=== PATIENT | female | born 1930 | race Caucasian/White ===

== ENCOUNTER 2016-08-10 13:25 | Inpatient (IN) ==
--- NOTE | 2016-08-10 13:30 | Emergency Department Note ---
Disposition Clinical Impression: Fall Femur fracture, left Qualifiers: Encounter type: initial encounter Femur location: intertrochanteric Fracture type: closed Fracture alignment: displaced Qualified Code(s): S72.142A - Displaced intertrochanteric fracture of left femur, initial encounter for closed fracture Disposition: Admitted As Inpatient Time of Disposition: 15:12 Lower Extremity Injury HPI - General Chief Complaint: ED Extremity Injury, Lower Stated Complaint: L hip pain Time Seen by Provider: 08/10/16 13:28 Source: patient, EMS Mode of arrival: EMS Limitations: no limitations Nursing Notes Reviewed: Yes Vital Signs Reviewed: Yes - History of Present Illness HPI Narrative: Patient is an 85-year-old female with past medical history of hypertension, hypokalemia. She presents today due to mechanical fall. Patient states that she was walking outside and made a turn, lost balance and fell onto her left hip. She complains of significant pain in her left joint. She denies hitting her head, any head or neck pain, denies chest pain, shortness breath, nausea, vomiting, fevers, diarrhea, abdominal pain. Denies any dizziness or lightheadedness before the fall, denies any palpitations before the fall. She states that she falls often because of difficulty with balance. - Related Data Home Medications Medication Instructions Recorded Confirmed Acetaminophen [Tylenol] 500 mg PO Q6H PRN 08/10/16 08/10/16 Calcium Carbonate [Calcium] 600 mg PO BID 08/10/16 08/10/16 Metoprolol Succinate 100 mg PO DAILY 08/10/16 08/10/16 Multivit-Min/FA/Lycopen/Lutein 1 each PO DAILY 08/10/16 08/10/16 [Centrum Silver Tablet] [place]-3/Dha/Epa/Fish Oil [Fish Oil 1,000 mg PO DAILY 08/10/16 08/10/16 1,000 mg Softgel] Oxybutynin [Ditropan] 5 mg PO DAILY 08/10/16 08/10/16 Potassium Chloride [K-Tab ER] 20 meq PO DAILY 08/10/16 08/10/16 Triamterene/HCTZ 37.5/25mg 1 each PO DAILY 08/10/16 08/10/16 [Dyazide] Allergies Allergy/AdvReac Type Severity Reaction Status Date / Time No Known Allergies Allergy Verified 09/28/15 16:34 All systems ED: reviewed and negative except as stated. Constitutional: Denies: fever Cardiovascular: Denies: chest pain, palpitations Respiratory: Denies: cough, dyspnea Gastrointestinal: Denies: abdominal pain, nausea, vomiting, diarrhea, constipation Musculoskeletal: Reports: arthralgia. Denies: back pain, neck pain Integumentary: Denies: rash, lesions Neurological: Denies: weakness, numbness, paresthesias Past Medical History - Past Medical History Attestation: Yes The following information was validated with the patient. Source: patient Medical history: Reports: hypertension Psychiatric history: Reports: no psych history - Social History Smoking Status: Never smoker Smokeless Tobacco Status: No Alcohol use: Reports: none Drug use: Reports: none Physical Exam - General Limitations: no limitations General appearance: alert, in no apparent distress - Head Head exam: atraumatic, normocephalic, normal inspection - Eye Eye exam: Present: normal appearance, PERRL, EOMI - ENT ENT exam: normal exam, mucous membranes moist - Neck Neck exam: Present: normal inspection, full ROM, trachea midline. Absent: tenderness - Respiratory Respiratory exam: Present: normal lung sounds bilaterally - Cardiovascular Cardiovascular exam: Present: regular rate, normal rhythm, normal heart sounds - Abdominal Exam Abdominal exam: Present: soft, Non-Tender. Absent: tenderness, distention, guarding, rebound, rigidity - Extremities Exam Extremities exam: Present: other (Pain with ASIS compression of the left hip. Left lower extremity is shortened and internally rotated compared to the right. No other injuries noted to any other extremities.) - Neurological Exam Neurological exam: Present: alert, oriented X3. Absent: motor sensory deficit - Psychiatric Psychiatric exam: Present: normal affect, normal mood - Skin Skin exam: Present: warm, dry, intact, normal color, other (no cuts or lesions) Course Course Narrative: Physical exam shows Pain with ASIS compression of the left hip. Left lower extremity is shortened and internally rotated compared to the right. No other injuries noted to any other extremities. Concern for left hip or femur fracture. We will obtain AP pelvis x-ray and left femur x-ray. We will give the patient morphine for pain control. 14:44 x-ray show a left intertrochanteric femur fracture. Dr. Margaret gray. He recommended admission to the hospitalist and then will likely perform surgery tomorrow. Dr. Judd meléndez. Femur X-Ray 08/10/16 13:41 IMPRESSION: Intratrochanteric femur fracture better demonstrated on the pelvic examination performed today D/ / Damir Garza MD / Damir Garza MD Interpreting Provider: Damir Garza MD Pelvis X-Ray 08/10/16 13:41 IMPRESSION: Comminuted intertrochanteric fracture of the left femur with over riding of fracture fragments. D/ / Angel Carolina MD / Angel Carolina MD Interpreting Provider: Angel Carolina MD Vital Signs Temperature 98.0 F 08/10/16 13:34 Pulse Rate 70 08/10/16 13:34 Respiratory Rate 16 08/10/16 13:34 Blood Pressure 160/76 08/10/16 13:34 O2 Sat by Pulse Oximetry 97 08/10/16 13:34 Temperature 98.0 F 08/10/16 13:34 Pulse Rate 71 08/10/16 16:36 Respiratory Rate 16 08/10/16 16:36 Blood Pressure 106/44 08/10/16 16:36 O2 Sat by Pulse Oximetry 96 08/10/16 16:36 Oxygen Delivery Oxygen Delivery Room Air Extremity Injury, Lower - Lab Data Result diagrams: 08/10/16 14:40 08/10/16 14:40 Lab Results 08/10/16 08/10/16 08/10/16 Range/Units 14:40 14:40 14:40 WBC 7.2 (4.3-11.1) K/mcL RBC 3.46 L (3.82-4.97) M/mcL Hgb 11.7 (11.5-15.4) g/dL Hct 33.8 L (35.3-44.9) % MCV 97.7 (83.0-100.0) fL MCH 33.8 H (28.0-33.3) pg MCHC 34.6 (31.6-35.5) g/dL RDW 12.7 (11.5-14.5) % Plt Count 164 (140-400) K/mcL MPV 10.6 (9.4-12.4) fL Immature Gran % 0.3 (0-4) % Seg Neutrophils % 66.7 % Lymphocytes % 22.0 % Monocytes % 9.7 % Eosinophils % 1.0 % Basophils % 0.3 % Neutrophils # 4.8 (1.6-8.9) K/mcL Lymphocytes # 1.6 (0.6-4.6) K/mcL Monocytes # 0.7 (0.0-1.3) K/mcL Eosinophils # 0.1 (0.0-0.6) K/mcL Basophils # 0.0 (0.0-0.2) K/mcL PT 12.7 H (9.4-12.1) Seconds INR 1.2 Sodium 140 (136-145) mEq/L Potassium 3.7 (3.5-4.5) mEq/L Chloride 103 (98-109) mEq/L Carbon Dioxide 27 (19-29) mEq/L BUN 20 (7-20) mg/dL Creatinine 1.10 (0.57-1.11) mg/dL Est GFR ( Amer) 57 L (> 60) Est GFR (Non-Af Amer) 47 L (> 60) BUN/Creatinine Ratio 18 (6-26) Glucose 112 H (70-99) mg/dL Calculated Osmolality 293 (280-300) Calcium 9.8 (8.6-10.8) mg/dL Blood Type Antibody Screen 08/10/16 Range/Units 14:40 WBC (4.3-11.1) K/mcL RBC (3.82-4.97) M/mcL Hgb (11.5-15.4) g/dL Hct (35.3-44.9) % MCV (83.0-100.0) fL MCH (28.0-33.3) pg MCHC (31.6-35.5) g/dL RDW (11.5-14.5) % Plt Count (140-400) K/mcL MPV (9.4-12.4) fL Immature Gran % (0-4) % Seg Neutrophils % % Lymphocytes % % Monocytes % % Eosinophils % % Basophils % % Neutrophils # (1.6-8.9) K/mcL Lymphocytes # (0.6-4.6) K/mcL Monocytes # (0.0-1.3) K/mcL Eosinophils # (0.0-0.6) K/mcL Basophils # (0.0-0.2) K/mcL PT (9.4-12.1) Seconds INR Sodium (136-145) mEq/L Potassium (3.5-4.5) mEq/L Chloride (98-109) mEq/L Carbon Dioxide (19-29) mEq/L BUN (7-20) mg/dL Creatinine (0.57-1.11) mg/dL Est GFR ( Amer) (> 60) Est GFR (Non-Af Amer) (> 60) BUN/Creatinine Ratio (6-26) Glucose (70-99) mg/dL Calculated Osmolality (280-300) Calcium (8.6-10.8) mg/dL Blood Type A POSITIVE Antibody Screen NEGATIVE S.B.A.Alfredo - Ciara Situation: Demographics, MOA Background: Presenting Complaint, Relevant PMH, Meds, & Allergies Assessment: Vital Signs, Course and respsone to treatment, Exam Concerns, Patient/Family Expectation, Pertinant Lab Results, Outstanding Labs Recommendation: Barrier(s) to disposition, Recommendation based on pending studies, treatments, or consults S.B.A.RJacey Report Given to: Dr. Judd Urbina Repor Time: 15:12 Attestation Statement - Attestation Attestation: I, William Dunbar, examined this patient and my medical decision-making was reviewed with the PHARMACIST HELPER/PA/Advanced Practice Nurse/Resident Physician. I agree with the documented findings, disposition and treatment plan as described except to the extent set forth below. 85-year-old female presents to the emergency department for evaluation of left hip pain after mechanical fall. Patient states she was turning, lost her balance and fell to the ground striking her left hip. Patient denies hitting her head or having loss of consciousness. Patient's left lower extremity is internally rotated and shortened. She has significant pain with range of motion of the left hip. X-ray of the left hip shows comminuted fracture. Patient's pain is controlled with IV pain medication emergency department. She feels comfortable to be admitted to the hospital for further care and evaluation
[2016-08-10] MEDS ORDERED: *HR* Morphine 2 MG/ML SYRINGE IVP ONE ×2 (13:42→16:58)
[2016-08-10 14:50] LABS: Basophils % 0.3 %; Eosinophils # 0.1 K/mcL (0.0-0.6); Hematocrit 33.8 % (35.3-44.9); Hemoglobin 11.7 g/dL (11.5-15.4); Immature Granulocytes % 0.3 % (0-4); Lymphocytes # 1.6 K/mcL (0.6-4.6); Mean Corpuscular HGB Conc 34.6 g/dL (31.6-35.5); Mean Corpuscular Hemoglobin 33.8 pg (28.0-33.3); Mean Corpuscular Volume 97.7 fL (83.0-100.0); Mean Platelet Volume 10.6 fL (9.4-12.4); Monocytes # 0.7 K/mcL (0.0-1.3); Monocytes % 9.7 %; Neutrophils # 4.8 K/mcL (1.6-8.9); Platelet Count 164 K/mcL (140-400); Red Blood Count 3.46 M/mcL (3.82-4.97); Red Cell Distribution Width 12.7 % (11.5-14.5); Segmented Neutrophils % 66.7 %
[2016-08-10 14:59] LABS: Calcium 9.8 mg/dL (8.6-10.8); Potassium 3.7 mEq/L (3.5-4.5)
[2016-08-10 15:02] LABS: INR 1.2; Prothrombin Time 12.7 Seconds (9.4-12.1)
[2016-08-10] MEDS ORDERED: *HR* Morphine 2 MG/ML SYRINGE IVP PRN (16:59)
[2016-08-10] MEDS ORDERED: Ondansetron 4 MG/2 ML VIAL IVP PRN (17:00)
--- NOTE | 2016-08-10 17:05 | Internal Med History&Physical ---
Date of Encounter: 08/10/16 Time of Encounter: 17:03 Assessment and Plan (1) Hypertension Current visit: Yes Status: Acute Continue metoprolol hundred milligrams daily. Optimal pain control. Qualifiers: Qualified Code(s): I10 - Essential (primary) hypertension (2) CKD (chronic kidney disease) stage 3, GFR 30-59 ml/min Current visit: Yes Status: Acute Stable. Due to long-standing hypertension. (3) Preoperative clearance Current visit: Yes Status: Acute Patient has fair functional capacity can walk approximately 2 blocks. Denies any limiting chest pain. No prior history of coronary artery disease. Clinical predictors include hypertension, chronic kidney disease. Electrocardiogram shows no ST segment shifts. Patient should be able to tolerate surgery with no need for further perioperative cardiac testing. (4) Femur fracture, left Current visit: Yes Status: Acute Orthopedic consultation. NPO after midnight for surgery. Qualifiers: Encounter type: initial encounter Femur location: intertrochanteric Fracture type: closed Fracture alignment: displaced Qualified Code(s): S72.142A - Displaced intertrochanteric fracture of left femur, initial encounter for closed fracture Internal Medicine - H&P: HPI Chief complaint: fall History of present illness: Ms. Reagan is a 85 year old female with past medical history of hypertension, chronic kidney disease stage III, presents the emergency room today after a fall. Patient was in her driveway getting ready to sit on her front porch and as she was turning around lost her balance and fell down. She fell on the left side of her body. He started experiencing pain in the left hip Parisian unable to bear weight for ambulate. Imaging in the emergency room shows left femur fracture. Patient mentioned that she has been somewhat unsteady recently she has a Cane and a walker which she occasionally uses for ambulation. She denies any syncope, presyncope, seizure, focal upper or lower extremity weakness tingling or numbness in any extremity facial symmetry or speech sluriness as a cause for the fall. No recent febrile illness. Patient denies any chest pain with exertion. Can walk approximately 1 to 2 blocks. She lives with her son and her brother lives across the street from her. Past Med Surg Social Fam HX - Past Medical History Medical history: hypertension Psychiatric history: no psych history - Social History Smoking Status: Never smoker Smokeless Tobacco Status: No Alcohol use: none Drug use: none Internal Medicine - H&P: Meds Acetaminophen [Tylenol] 500 mg PO Q6H PRN 08/10/16 [History] Calcium Carbonate [Calcium] 600 mg PO BID 08/10/16 [History] Metoprolol Succinate 100 mg PO DAILY 08/10/16 [History] Multivit-Min/FA/Lycopen/Lutein [Centrum Silver Tablet] 1 each PO DAILY 08/10/16 [History] [place]-3/Dha/Epa/Fish Oil [Fish Oil 1,000 mg Softgel] 1,000 mg PO DAILY 08/10/16 [History] Oxybutynin [Ditropan] 5 mg PO DAILY 08/10/16 [History] Potassium Chloride [K-Tab ER] 20 meq PO DAILY 08/10/16 [History] Triamterene/HCTZ 37.5/25mg [Dyazide] 1 each PO DAILY 08/10/16 [History] Allergies No Known Allergies Allergy (Verified 09/28/15 16:34) All Systems PM: A 10-system review of systems was performed and is negative for pertinent findings except as documented above in the HPI. Review of systems: 10 point review of systems is negative except for HPI. - Constitutional Vitals: Temp Pulse Resp BP Pulse Ox 98.0 F 71 16 106/44 96 08/10/16 13:34 08/10/16 16:36 08/10/16 16:36 08/10/16 16:36 08/10/16 16:36 Exam: Gen.: patient is alert oriented times 3 not in distress. Cardiac: normal S1 S2 no additional sounds chest: Diminished air entry in the right base abdomen: soft nontender nondistended lower extremity: left leg shortened and externally rotated Neuro: No focal deficits. Internal Med - H&P Results - Labs CBC & Chem 7: 08/10/16 14:40 08/10/16 14:40
--- NOTE | 2016-08-10 19:50 | Anesthesia Evaluation PreOp ---
Date of Encounter: 08/10/16 Time of Encounter: 19:47 - Past History Planned Operation: L Hip IM Nail Cardiac History: HTN Pulmonary History: Denies Any Significant HX NETWORKER History: Denies Any Significant HX Other Medical History: Renal (ckd) Anesthesia History: No Prior Anesthetic Complications, Past Anesthesia Alcohol Use: none Drug use: none Medications and Allergies Acetaminophen [Tylenol] 500 mg PO Q6H PRN 08/10/16 [History] Calcium Carbonate [Calcium] 600 mg PO BID 08/10/16 [History] Metoprolol Succinate 100 mg PO DAILY 08/10/16 [History] Multivit-Min/FA/Lycopen/Lutein [Centrum Silver Tablet] 1 each PO DAILY 08/10/16 [History] [place]-3/Dha/Epa/Fish Oil [Fish Oil 1,000 mg Softgel] 1,000 mg PO DAILY 08/10/16 [History] Oxybutynin [Ditropan] 5 mg PO DAILY 08/10/16 [History] Potassium Chloride [K-Tab ER] 20 meq PO DAILY 08/10/16 [History] Triamterene/HCTZ 37.5/25mg [Dyazide] 1 each PO DAILY 08/10/16 [History] Allergies No Known Allergies Allergy (Verified 09/28/15 16:34) - Meds/Allergy Pre-op Review Medications Reviewed: Yes Allergies Reviewed: Yes Beta Blockers on Current Med List: Yes If Beta Blockers taken, Date/Time (Last Dose taken): metoprolol Anesthesia Results - Labs 08/10/16 14:40 08/10/16 14:40 - Imaging EKG: report reviewed (sr/mod lvh) Anesthesia Exam Vital Signs/O2 Sat/Glucose, Most Current Pulse Resp BP Pulse Ox 08/10/16 16:36 71 16 106/44 96 08/10/16 16:34 16 106/44 Height: 1.65 Weight: 61 NPO (# of Hours): >8 - HEENT Pupil (Motor): Pupils equal, EOMI Mallampati: II Teeth: Poor dentition Denture Type: Upper: Partial Oral Opening: Greater than 3 - NETWORKER LOC: Oriented NETWORKER Motor: Normal RUE, Normal LUE, Normal RLE, Normal LLE, Normal Face NETWORKER Sensory: Normal: RUE, LUE, RLE, LLE, Face - Cardiac Rhythm: Regular Murmur: None - Pulmonary Breath Sounds: bilateral Clear Respiratory Effort: Symmetrical Anesthesia Assess/Plan ASA Score: 3 Modified [place] Scale for Level of Consciousness: Cooperative, oriented, and tranquil Anesthetic Plan: General Monitoring Plan: Standard Monitors Recovery Plan: PACU
[2016-08-11] MEDS: Acetaminophen 325 MG TABLET PO PRN ×2 (01:07→08:33)
[2016-08-11 05:27] LABS: Basophils % 0.1 %; Eosinophils % 0.2 %; Hematocrit 28.9 % (35.3-44.9); Immature Granulocytes % 0.3 % (0-4); Lymphocytes # 1.7 K/mcL (0.6-4.6); Lymphocytes % 16.1 %; Mean Corpuscular HGB Conc 33.9 g/dL (31.6-35.5); Mean Corpuscular Hemoglobin 33.2 pg (28.0-33.3); Mean Platelet Volume 11.4 fL (9.4-12.4); Monocytes # 1.4 K/mcL (0.0-1.3); Monocytes % 13.1 %; Neutrophils # 7.2 K/mcL (1.6-8.9); Platelet Count 128 K/mcL (140-400); Red Blood Count 2.95 M/mcL (3.82-4.97); Red Cell Distribution Width 12.8 % (11.5-14.5); Segmented Neutrophils % 70.2 %
[2016-08-11 05:29] LABS: BUN/Creatinine Ratio 23 (6-26); Blood Urea Nitrogen 24 mg/dL (7-20); Calcium 9.3 mg/dL (8.6-10.8); Carbon Dioxide 27 mEq/L (19-29); Chloride 102 mEq/L (98-109); Glucose 131 mg/dL (70-99); Magnesium 1.7 mg/dL (1.6-2.6); Osmolality,Calculated 292 (280-300); Potassium 3.7 mEq/L (3.5-4.5); Sodium 138 mEq/L (136-145); eGFR For African Americans > 60 (> 60); eGFR For Non-African Americans 51 (> 60)
[2016-08-11 05:36] LABS: Hemoglobin 9.8 g/dL (11.5-15.4)
--- NOTE | 2016-08-11 07:28 | Orthopedic Consult Note ---
Date of Encounter: 08/11/16 Time of Encounter: 07:26 Assessment and Plan (1) Femur fracture, left Current Visit: Yes Status: Acute I did discuss the diagnosis in great detail with the patient. She has a left displaced intertrochanteric hip fracture. I did discuss treatment options with the patient and my recommendation was for reduction and internal fixation of the left hip in order to provide pain control and help facilitate nursing care. The risks discussed included but were not limited to stiffness, bleeding, infection, blood clots, damage to neurovascular structures, tendons, ligaments, and bone. Also discussed was the risk of continued symptoms and possible need for further procedures. I did discuss the anesthesia risks including stroke, heart attack, and . I also discussed the risk of malunion, nonunion, and hardware failure. I also discussed the risk of fracture about the distal portion of the prosthesis. I also discussed the reasonable, foreseeable postoperative course with the patient and I do anticipate discharge to a rehabilitation facility postop. I did explain this to the patient in simple terms and she did wish to proceed and consent was obtained. Qualifiers: Encounter type: initial encounter Femur location: intertrochanteric Fracture type: closed Fracture alignment: displaced Qualified Code(s): S72.142A - Displaced intertrochanteric fracture of left femur, initial encounter for closed fracture History of Present Illness HPI: Ms. Reagan is a 85 year old female who is an unassisted community ambulator. She lives independently. She sustained a fall on her front porch yesterday and was admitted to the hospitalist after being found to have a left displaced intertrochanteric hip fracture. The patient complains of isolated sharp pain about the left hip. This does radiate down the thigh. She denies any numbness , tingling, or any other associated signs or symptoms. Movement makes the pain worse and rest makes the pain better. While laying still she was able to get sleep last night. She has no new complaints this morning. She denies any headaches, neck pain, chest pain, abdominal pain, bilateral upper extremity, and right lower extremity pain. She denies any loss of consciousness. Past Med Surg Social Fam HX - Past Medical History Medical history: hypertension Psychiatric history: no psych history - Past Surgical History Surgical History: appendectomy - Social History Smoking Status: Never smoker Smokeless Tobacco Status: No Alcohol use: none Drug use: none Medications and Allergies Acetaminophen [Tylenol] 500 mg PO Q6H PRN 08/10/16 [History] Calcium Carbonate [Calcium] 600 mg PO BID 08/10/16 [History] Metoprolol Succinate 100 mg PO DAILY 08/10/16 [History] Multivit-Min/FA/Lycopen/Lutein [Centrum Silver Tablet] 1 each PO DAILY 08/10/16 [History] [place]-3/Dha/Epa/Fish Oil [Fish Oil 1,000 mg Softgel] 1,000 mg PO DAILY 08/10/16 [History] Oxybutynin [Ditropan] 5 mg PO DAILY 08/10/16 [History] Potassium Chloride [K-Tab ER] 20 meq PO DAILY 08/10/16 [History] Triamterene/HCTZ 37.5/25mg [Dyazide] 1 each PO DAILY 08/10/16 [History] Allergies No Known Allergies Allergy (Verified 09/28/15 16:34) All Systems Reviewed: Constitutional and musculoskeletal systems were reviewed and are negative unless otherwise stated in history of present illness. Physical Exam - Constitutional Vitals: Temp Pulse Resp BP Pulse Ox 98.5 F 73 16 125/73 96 08/11/16 07:24 08/11/16 07:24 08/11/16 07:24 08/11/16 07:24 08/11/16 07:24 Constitutional -Vitals reviewed -The patient is well developed and well nourished. -Mood is pleasant. -The patient is well groomed. Psychiatric -The patient is fully alert and oriented x 3. Respiratory: -Respiratory effort normal Abdomen: -Soft abdomen -Non tender -Non distended: Left upper extremity: -No deformities. The overlying skin is intact. No obvious signs of acute trauma. -No tenderness to palpation throughout. -No significant pain with passive motion of the shoulder, elbow, wrist, and fingers within the limits of the bed. -Able to make an "OK" sign, cross the index and long fingers, and extend the thumb. -Sensation grossly intact to light touch throughout the median, radial, and ulnar distributions. -Radial pulse is present; Fingers have good capillary refill. Right upper extremity: -No deformities. The overlying skin is intact. No obvious signs of acute trauma. -No tenderness to palpation throughout. -No significant pain with passive motion of the shoulder, elbow, wrist, and fingers within the limits of the bed. -Able to make an "OK" sign, cross the index and long fingers, and extend the thumb. -Sensation grossly intact to light touch throughout the median, radial, and ulnar distributions. -Radial pulse is present; Fingers have good capillary refill. Left lower extremity: -The extremity is shortened and externally rotated. The overlying skin is intact. -There is tenderness in the groin region as well as the proximal lateral thigh. -I did not range the hip due to the known fracture. -No tenderness along the distal thigh, leg, ankle, foot, or toes. -Able to dorsiflex and plantarflex the ankle and toes. -Sensation is grossly intact to light touch throughout the sural, saphenous, superficial peroneal, and deep peroneal distributions. -Toes have good capillary refill. Right lower extremity: -No deformities. The overlying skin is intact. No obvious signs of acute trauma. -No tenderness to palpation throughout. -No pain with passive motion of the hip, knee, ankle, and toes within the limits of the bed. -No pain with axial loading of the thigh. -Able to dorsiflex and plantarflex the ankle and toes. -Sensation is grossly intact to light touch throughout the sural, saphenous, superficial peroneal, and deep peroneal distributions. -Toes have good capillary refill. Diagnostic Imaging: I did personally review and interpret x-rays of the left hip and femur which show a displaced intertrochanteric hip fracture. Results - Labs Result Diagrams: 08/11/16 03:20 08/11/16 03:20 Labs: Abnormal lab results RBC 2.95 M/mcL (3.82-4.97) L 08/11/16 03:20 Hgb 9.8 g/dL (11.5-15.4) L D 08/11/16 03:20 Hct 28.9 % (35.3-44.9) L 08/11/16 03:20 Plt Count 128 K/mcL (140-400) L 08/11/16 03:20 Monocytes # 1.4 K/mcL (0.0-1.3) H 08/11/16 03:20 PT 12.7 Seconds (9.4-12.1) H 08/10/16 14:40 BUN 24 mg/dL (7-20) H 08/11/16 03:20 Est GFR (Non-Af Amer) 51 (> 60) L 08/11/16 03:20 Glucose 131 mg/dL (70-99) H 08/11/16 03:20 H & H 08/11/16 Range/Units 03:20 Hgb 9.8 L D (11.5-15.4) g/dL Hct 28.9 L (35.3-44.9) % All other labs normal. Consult Discharge Plan - Plan Referrals: Sha Beyer DO [Primary Care Provider] -
[2016-08-11] MEDS ORDERED: D5% in 0.9% NACL 1,000 ML IVC SCH (08:00)
[2016-08-11] MEDS: Omega-3/Dha/Epa/Fish Oil [Fish Oil 1,000 Mg Softgel] PO SCH (08:26)
[2016-08-11] MEDS: Metoprolol XL (24 HR) Succ 50 MG TAB.ER.24H PO SCH (08:33)
[2016-08-11] MEDS ORDERED: *HR* Morphine 2 MG/ML SYRINGE IVP PRN ×2 (09:25→13:19)
--- NOTE | 2016-08-11 12:00 | Internal Med Progress Note ---
Date of Encounter: 08/11/16 Time of Encounter: 11:57 - Assessment and plan (1) Hypertension Current Visit: Yes Status: Acute Assessment and plan: Fairly well-controlled continue metoprolol hundred milligrams daily. Qualifiers: Qualified Code(s): I10 - Essential (primary) hypertension (2) CKD (chronic kidney disease) stage 3, GFR 30-59 ml/min Current Visit: Yes Status: Acute Assessment and plan: Stable. (3) Femur fracture, left Current Visit: Yes Status: Acute Assessment and plan: Patient going for surgery today. Patient not tolerating morphine while. Will decrease morphine dose to 1 mg Q4 hours for severe pain. Continue Tionesta Q4 hours for moderate pain. I have discussed with the patient the need for skilled care on discharge. I have also discussed with her the need for one month of anticoagulation therapy Qualifiers: Encounter type: initial encounter Femur location: intertrochanteric Fracture type: closed Fracture alignment: displaced Qualified Code(s): S72.142A - Displaced intertrochanteric fracture of left femur, initial encounter for closed fracture - Subjective Interval history: Patient seen and examined. Denies any new complains. paid well-controlled. No chest pain - Constitutional Vitals: Temp Pulse Resp BP Pulse Ox 98.3 F 68 16 127/63 95 08/11/16 10:08 08/11/16 10:08 08/11/16 10:08 08/11/16 10:08 08/11/16 10:08 Exam: Gen.: patient is alert oriented times 3 not in distress. Cardiac: normal S1 S2 no additional sounds or murmurs chest: fair air entry. no active wheezing. No crackles or bronchial breathing. abdomen: soft nontender nondistended normal bowel sounds neuro: no focal deficit Internal Medicine: Result - Labs CBC & Chem 7: 08/11/16 03:20 08/11/16 03:20 - ABG Interpretation ABG results: PT/INR, D-dimer PT 12.7 Seconds (9.4-12.1) H 08/10/16 14:40 Consult Discharge Plan - Plan Referrals: Sha Beyer DO [Primary Care Provider] -
--- NOTE | 2016-08-11 12:35 | Electrocardiograph Report ---
[place] [id number] Test Date: 2016-08-10 Pat Name: Sandy Reagan Department: 104 Room: [facility] Gender: F Planning Aide: [id number] : 1930 Requested By: Daryn Raines Order Number: [id number] Reading MD: Kalie Scherer Measurements Intervals Brothers Rate: 64 P: 17 OK: 148 QRS: -9 QRSD: 100 T: 31 QT: 400 QTc: 410 Interpretive Statements SINUS RHYTHM MINIMAL VOLTAGE CRITERIA FOR LVH, CONSIDER NORMAL VARIANT Electronically Signed On 08-11-2016 12:33:48 EDT by Kalie Scherer
[2016-08-11] MEDS ORDERED: *HR* Rocuronium Bromide 50 MG/5 ML VIAL ONE (12:37)
[2016-08-11] MEDS ORDERED: Lidocaine -MPF 2% 2 ML VIAL ONE (12:37)
[2016-08-11] MEDS ORDERED: *HR* Phenylephrine 10 MG/ML VIAL ONE (12:37)
[2016-08-11] MEDS ORDERED: *HR* Propofol 200 MG/20 ML VIAL IVP ONE (12:38)
[2016-08-11] MEDS ORDERED: *HR* FentaNYL (PF) 100 MCG/2 ML VIAL ONE ×2 (12:38→13:50)
[2016-08-11] MEDS ORDERED: Ondansetron 4 MG/2 ML VIAL IVP ONE (13:19)
[2016-08-11] MEDS ORDERED: *HR* Labetalol 100 MG/20 ML MDV IVP PRN (13:19)
[2016-08-11] MEDS ORDERED: Dexamethasone 4 MG/ML VIAL ONE (13:25)
[2016-08-11] MEDS ORDERED: Neostigmine Methylsulfate 3 MG/3 ML SYRINGE ONE (13:28)
[2016-08-11] MEDS: *HR* HYDROmorphone (PF) 1 MG/ML SYRINGE IVP PRN ×4 (14:20→14:40)
[2016-08-11] MEDS ORDERED: *HR* HYDROmorphone (PF) 1 MG/ML SYRINGE ONE (14:21)
--- NOTE | 2016-08-11 14:54 | Anesthesia Evaluation Post Op ---
Date of Encounter: 08/11/16 Time of Encounter: 14:53 - Vital Signs Vital Signs: Last Vital Signs Temp 97.2 F L 08/11/16 14:33 Pulse 70 08/11/16 14:33 Resp 16 08/11/16 14:33 BP 144/61 08/11/16 14:33 Pulse Ox 97 08/11/16 14:33 - Lungs Lungs: Clear Ascult./Percussion - Airway Airway: Non-obstructed - Cardiovascular Regular Rate - Mental Status Mental Status: Alert & Oriented, Answers Appropriately - Pain Pain Scale: 3 - Nausea Vomiting Nausea Vomiting: Not Present - Hydration Hydration: Ice chips - Discharge PostOp Status: Transfer Patient to floor
[2016-08-11] MEDS: ceFAZolin 2,000 MG in D5% in Water 100 ML IVPB SCH (19:02)
--- NOTE | 2016-08-11 21:12 | Orthopedic Operative Note ---
Date of procedure: 08/11/16 Procedure: OPERATIVE REPORT DATE OF PROCEDURE: 08/11/2016 SURGEON: Carlos Robles MD CHARGE OPERATOR(S): There were no assistants PREOPERATIVE DIAGNOSIS: Left intertrochanteric hip fracture POSTOPERATIVE DIAGNOSIS: Left intertrochanteric hip fracture PROCEDURE: Reduction and medullary nailing of the left hip fracture ANESTHESIA: General anesthesia PREOPERATIVE ANTIBIOTICS: 2 g of Ancef ESTIMATED BLOOD LOSS: 40 milliliters IMPLANTS: Ban Gamma 3 nail measuring 11 mm by 180 mm by 125 degrees with a 95 mm lag screw PREOPERATIVE NOTE AND INDICATIONS: Sandy is an 85-year-old female who sustained a left intertrochanteric hip fracture. Treatment options were discussed and the recommendation was for the above-described procedure in order to stabilize the hip, control pain, and help facilitate nursing care. The surgical plan was discussed with the patient. The risks, benefits, alternatives, and potential complications of this procedure were discussed with the patient including injury to veins, arteries, nerves, tendons, ligaments, and bone. Also discussed were the risks of infection, bleeding, pain, blood clots, the possible need for a blood transfusion, the possible need for further procedures, heart attack, stroke, and . Additional risks discussed included malunion, nonunion, hardware failure, and fracture just distal to the implant. All of this was explained in simple terms, and the patient verbalized understanding and wished to proceed. Consent was given to proceed with surgery. PROCEDURE: The patient was seen in the preoperative holding area where the identify and the consent were confirmed. The left hip was marked. Final questions were answered. The patient was brought back to the operating room. A huddle was performed with the patient and all vital surgical team members confirming patient identity, the correct procedure, and the correct operative site. General anesthesia was administered. The patient was placed supine on the traction table where traction was placed to the left lower extremity, and the right lower extremity was flexed and abducted out of the way. Traction and internal rotation was applied to the operative side. X-rays confirmed good position. The left thigh was prepped and draped in the usual sterile fashion. A surgical time out was performed immediately preceding the incision with all personnel in the operating room to confirm patient identity, the correct operative site and extremity, correct radiographic studies, availability of appropriate surgical equipment, and agreement on the planned procedure. A small incision was made just proximal to the greater trochanter and proceeded through the subcutaneous tissue and gluteal fascia. The guidewire was placed on the greater trochanter and advanced. The opening reamer was applied and the definitive nail was placed in the medullary canal. Using the triple sleeve, the K wire was driven into the femoral head which was subsequently measured, reamed, and the definitive 95 mm lag screw was placed. Using the distal targeter, a single 32.5 mm locking screw was placed in static mode. X-rays confirmed good position of the hardware as well as good reduction. The wounds were copiously irrigated and the deep layer closed with 0 Vicryl followed by the skin with 3-0 Vicryl and cecelia. Sterile dressings were placed. The patient was taken down off the traction table and placed our operative bed having tolerated the procedure well. The instrument, sponge, and needle counts were correct after wound closure. POST OPERATIVE PLAN: Weight Bearing: As tolerated DVT Prophylaxis: Aspirin 325 mg by mouth twice a day Activity: As tolerated with assistance Wound Care: Daily dressing changes on postoperative day 2 Pain Control: Oral and IV narcotic analgesia. Perioperative antibiotic prophylaxis: 2 doses of Ancef Social work for discharge planning Follow Up: 2 weeks after surgery
--- NOTE | 2016-08-11 21:25 | Orthopedics Progress Note ---
Date of Encounter: 08/11/16 Time of Encounter: 21:23 - Assessment and Plan (1) Femur fracture, left Current Visit: Yes Status: Acute Qualifiers: Encounter type: initial encounter Femur location: intertrochanteric Fracture type: closed Fracture alignment: displaced Qualified Code(s): S72.142A - Displaced intertrochanteric fracture of left femur, initial encounter for closed fracture Subjective Interval history: S: Seen on the floor. Hip pain on the left is improved. No new complaints. O: Afeb, VSS Left hip dressing is dry. Able to flex and extend ankles and toes. Foot is sensate and well perfused. A: Post left hip nail P: PT/OT WBAT B/L LE when able Hyatt out tomorrow 2 doses of post op ancef ASA 325 po BID and B/L Thigh high MARCE hose for DVT prophylaxis Dr. Dennis to round over the weekend. Objective Vital signs: Vital Signs Temp Pulse Resp BP Pulse Ox 08/11/16 20:10 98.1 F 69 15 130/53 94 08/11/16 18:15 98.1 F 69 17 119/61 98 08/11/16 17:17 97.5 F L 72 20 144/70 96 08/11/16 16:36 97.6 F 69 16 111/55 100 08/11/16 15:50 98.2 F 65 16 108/48 100 08/11/16 15:15 98.6 F 68 14 125/51 96 08/11/16 14:53 65 16 121/65 100 08/11/16 14:43 68 16 122/65 100 08/11/16 14:33 97.2 F L 70 16 144/61 97 08/11/16 14:23 68 16 137/73 100 08/11/16 14:13 68 16 145/60 100 08/11/16 14:03 97.1 F L 68 16 111/55 100 Intake and Output 08/11/16 08/11/16 08/11/16 07:59 15:59 23:59 Output Total 40 / 190 Balance -40 / -190 Output: Urine 0 / 0 Estimated Blood Loss 40 / 40 - Labs CBC & BMP: 08/11/16 03:20 08/11/16 03:20 Labs: Abnormal lab results RBC 2.95 M/mcL (3.82-4.97) L 08/11/16 03:20 Hgb 9.8 g/dL (11.5-15.4) L D 08/11/16 03:20 Hct 28.9 % (35.3-44.9) L 08/11/16 03:20 Plt Count 128 K/mcL (140-400) L 08/11/16 03:20 Monocytes # 1.4 K/mcL (0.0-1.3) H 08/11/16 03:20 PT 12.7 Seconds (9.4-12.1) H 08/10/16 14:40 BUN 24 mg/dL (7-20) H 08/11/16 03:20 Est GFR (Non-Af Amer) 51 (> 60) L 08/11/16 03:20 Glucose 131 mg/dL (70-99) H 08/11/16 03:20 - VTE Documentation of Mechanical Device: Intermittent pneumatic compression device Consult Discharge Plan - Plan Additional Instructions: LONGTERM DISCHARGE INSTRUCTIONS Dr. Robles PROCEDURE PERFORMED Reduction and fixation of left hip. Incision care -Daily dressing changes to the right hip with dry gauze and either paper tape or medipore tape. -Avoid soaking wound in water (no hot tubs, bathtubs, swimming pools). -May shower after 2 weeks from surgery date. Carefully wash incision with soap and water. Gently pat it dry. Don't rub the incision, or apply creams or lotions. Sit on a shower stool when showering to keep from falling. Weight bearing status -Weightbearing as tolerated to the bilateral lower extremities. Medications -Pain medication per the discharging medical doctor -Enteric coated aspirin 325 mg by mouth twice per day for 28 days from the date of the surgery. Other -Knee high MARCE hose 23 hours per day -Consult physical and occupational therapy for ambulation. -Up to chair with assistance at least twice per day. -Follow up with your primary care physician to discuss testing for bone mineral density. Follow-up with Dr. Robles at the office 2 weeks from the surgery date for a post operative evaluation. Call the office at [phone] to schedule appointment. Referrals: Sha Beyer DO [Primary Care Provider] -
[2016-08-11] MEDS: Aspirin Enteric Coated 325 MG Tablet PO SCH (21:53)
[2016-08-11] MEDS: *HR* HYDROcodone/Acet 5/325 mg TABLET PO PRN (21:53)
[2016-08-12] MEDS: ceFAZolin 2,000 MG in D5% in Water 100 ML IVPB SCH (02:38)
[2016-08-12] MEDS: *HR* HYDROcodone/Acet 5/325 mg TABLET PO PRN ×3 (02:43→23:15)
[2016-08-12 05:03] LABS: Basophils % 0.1 %; Hematocrit 25.2 % (35.3-44.9); Hemoglobin 8.6 g/dL (11.5-15.4); Immature Granulocytes % 0.4 % (0-4); Lymphocytes # 1.1 K/mcL (0.6-4.6); Lymphocytes % 8.3 %; Mean Corpuscular HGB Conc 34.1 g/dL (31.6-35.5); Mean Corpuscular Hemoglobin 33.9 pg (28.0-33.3); Mean Corpuscular Volume 99.2 fL (83.0-100.0); Mean Platelet Volume 11.4 fL (9.4-12.4); Monocytes # 1.4 K/mcL (0.0-1.3); Monocytes % 10.6 %; Neutrophils # 10.5 K/mcL (1.6-8.9); Platelet Count 122 K/mcL (140-400); Red Blood Count 2.54 M/mcL (3.82-4.97); Red Cell Distribution Width 12.8 % (11.5-14.5); Segmented Neutrophils % 80.6 %
[2016-08-12 05:15] LABS: BUN/Creatinine Ratio 20 (6-26); Blood Urea Nitrogen 19 mg/dL (7-20); Calcium 8.1 mg/dL (8.6-10.8); Carbon Dioxide 26 mEq/L (19-29); Chloride 104 mEq/L (98-109); Glucose 150 mg/dL (70-99); Magnesium 1.4 mg/dL (1.6-2.6); Osmolality,Calculated 291 (280-300); Potassium 3.8 mEq/L (3.5-4.5); Sodium 138 mEq/L (136-145); eGFR For African Americans > 60 (> 60); eGFR For Non-African Americans 56 (> 60)
--- NOTE | 2016-08-12 06:54 | Orthopedics Progress Note ---
Date of Encounter: 08/12/16 Time of Encounter: 06:53 Subjective Interval history: Patient was seen this morning doing well without complaints. Afebrile vital signs stable. Operative extremity: Neurovascularly intact Dressing clean dry and intact Calves nontender Assessment and plan: Continue with postoperative care hematocrit 25transfuse 1 unit Objective Vital signs: Vital Signs Temp Pulse Resp BP Pulse Ox 08/12/16 04:33 98.4 F 80 14 136/63 97 08/11/16 23:54 98.1 F 73 14 124/67 100 08/11/16 20:10 98.1 F 69 15 130/53 94 08/11/16 18:15 98.1 F 69 17 119/61 98 08/11/16 17:17 97.5 F L 72 20 144/70 96 08/11/16 16:36 97.6 F 69 16 111/55 100 08/11/16 15:50 98.2 F 65 16 108/48 100 08/11/16 15:15 98.6 F 68 14 125/51 96 08/11/16 14:53 65 16 121/65 100 08/11/16 14:43 68 16 122/65 100 08/11/16 14:33 97.2 F L 70 16 144/61 97 08/11/16 14:23 68 16 137/73 100 08/11/16 14:13 68 16 145/60 100 08/11/16 14:03 97.1 F L 68 16 111/55 100 Intake and Output 08/11/16 08/11/16 08/12/16 15:59 23:59 07:59 Intake Total 250 / 250 300 / 300 Output Total 40 / 190 200 / 200 250 / 250 Balance -40 / -190 50 / 50 50 / 50 Intake: IV Fluids 100 / 100 Ancef 2,000 MG In 100 / 100 Dextrose 5% 100 ML @ 200 mls/hr IVPB Q8H [facility] Rx#: [id number] Oral 150 / 150 300 / 300 Output: Urine 0 / 0 Estimated Blood Loss 40 / 40 Catheter 200 / 200 250 / 250 - Labs CBC & BMP: 08/12/16 04:06 08/12/16 04:06 Labs: Abnormal lab results WBC 13.0 K/mcL (4.3-11.1) H 08/12/16 04:06 RBC 2.54 M/mcL (3.82-4.97) L 08/12/16 04:06 Hgb 8.6 g/dL (11.5-15.4) L 08/12/16 04:06 Hct 25.2 % (35.3-44.9) L 08/12/16 04:06 MCH 33.9 pg (28.0-33.3) H 08/12/16 04:06 Plt Count 122 K/mcL (140-400) L 08/12/16 04:06 Neutrophils # 10.5 K/mcL (1.6-8.9) H 08/12/16 04:06 Monocytes # 1.4 K/mcL (0.0-1.3) H 08/12/16 04:06 PT 12.7 Seconds (9.4-12.1) H 08/10/16 14:40 Est GFR (Non-Af Amer) 56 (> 60) L 08/12/16 04:06 Glucose 150 mg/dL (70-99) H 08/12/16 04:06 Calcium 8.1 mg/dL (8.6-10.8) L 08/12/16 04:06 Magnesium 1.4 mg/dL (1.6-2.6) L 08/12/16 04:06 - VTE Documentation of Mechanical Device: Intermittent pneumatic compression device Consult Discharge Plan - Plan Additional Instructions: PRISON DISCHARGE INSTRUCTIONS Dr. Robles PROCEDURE PERFORMED Reduction and fixation of left hip. Incision care -Daily dressing changes to the right hip with dry gauze and either paper tape or medipore tape. -Avoid soaking wound in water (no hot tubs, bathtubs, swimming pools). -May shower after 2 weeks from surgery date. Carefully wash incision with soap and water. Gently pat it dry. Don't rub the incision, or apply creams or lotions. Sit on a shower stool when showering to keep from falling. Weight bearing status -Weightbearing as tolerated to the bilateral lower extremities. Medications -Pain medication per the discharging medical doctor -Enteric coated aspirin 325 mg by mouth twice per day for 28 days from the date of the surgery. Other -Knee high MARCE hose 23 hours per day -Consult physical and occupational therapy for ambulation. -Up to chair with assistance at least twice per day. -Follow up with your primary care physician to discuss testing for bone mineral density. Follow-up with Dr. Robles at the office 2 weeks from the surgery date for a post operative evaluation. Call the office at [phone] to schedule appointment. Referrals: Sha Beyer DO [Primary Care Provider] -
[2016-08-12] MEDS ORDERED: Furosemide 20 MG/2 ML VIAL IVP ONE ×2 (07:11→14:16)
[2016-08-12] MEDS: Metoprolol XL (24 HR) Succ 50 MG TAB.ER.24H PO SCH (09:05)
[2016-08-12] MEDS: Aspirin Enteric Coated 325 MG Tablet PO SCH ×2 (09:05→21:02)
[2016-08-12] MEDS ORDERED: 0.9 % Sodium Chloride 250 ML ONE (09:37)
[2016-08-12] MEDS: Omega-3/Dha/Epa/Fish Oil [Fish Oil 1,000 Mg Softgel] PO SCH (10:11)
[2016-08-12] MEDS ORDERED: Magnesium Sulfate 2 GM in D5% in Water 100 ML IVPB ONE (16:48)
--- NOTE | 2016-08-12 18:44 | Internal Med Progress Note ---
Date of Encounter: 08/12/16 Time of Encounter: 13:00 - Assessment and plan (1) Hypomagnesemia Current Visit: Yes Status: Acute Assessment and plan: Replete with IV magnesium. (2) Recurrent falls Current Visit: Yes Status: Acute Assessment and plan: PT OT evaluation. Subacute rehabilitation placement. (3) Disequilibrium Current Visit: Yes Status: Acute Assessment and plan: PT OT eval and daily therapy. (4) Femur fracture, left Current Visit: Yes Status: Acute Assessment and plan: Status post ORIF, continue postoperative care. Qualifiers: Encounter type: initial encounter Femur location: intertrochanteric Fracture type: closed Fracture alignment: displaced Qualified Code(s): S72.142A - Displaced intertrochanteric fracture of left femur, initial encounter for closed fracture (5) Hypertension Current Visit: Yes Status: Acute Assessment and plan: Continue with metoprolol. The pressure is well controlled. Qualifiers: Qualified Code(s): I10 - Essential (primary) hypertension (6) Postoperative anemia due to acute blood loss Current Visit: Yes Status: Acute Assessment and plan: Status post 1 unit PRBC transfusion. We will monitor hemoglobin and hematocrit daily. We will transfuse if hemoglobin below 7.0. - Subjective Interval history: Patient reports 0/10 left hip pain. She is postoperative day 1 status post left hip open reduction and internal fixation. She presented to the hospital status post fall which resulted in a left hip fracture. - Constitutional Vitals: Temp Pulse Resp BP Pulse Ox 97.9 F 88 18 123/59 96 08/12/16 14:01 08/12/16 14:01 08/12/16 14:01 08/12/16 14:01 08/12/16 14:01 - Respiratory Respiratory exam: Present: CTAB. Absent: accessory muscle use, rales, rhonchi, wheezes - Cardiovascular Cardiovascular exam: Present: RRR, +S1, +S2. Absent: diastolic murmur, gallop, rubs, systolic murmur - GI/Abdominal GI/Abdominal exam: Present: normal bowel sounds, soft, no peritoneal signs. Absent: distended, tenderness - Extremities Exam Extremities exam: Present: warm, radial pulses palpable and symetrical. Absent : calf tenderness, cyanotic, pedal edema Additional comments: Left hip bruising and soft tissue edema. Surgical dressing clean dry and intact. - Skin Skin exam: Present: dry, intact Internal Medicine: Result - Labs CBC & Chem 7: 08/12/16 04:06 08/12/16 04:06 Labs: Short CBC 08/12/16 Range/Units 04:06 WBC 13.0 H (4.3-11.1) K/mcL Hgb 8.6 L (11.5-15.4) g/dL Hct 25.2 L (35.3-44.9) % Plt Count 122 L (140-400) K/mcL Neutrophils # 10.5 H (1.6-8.9) K/mcL BMP 08/12/16 04:06 Sodium 138 Potassium 3.8 Chloride 104 Carbon Dioxide 26 BUN 19 Creatinine 0.95 Glucose 150 H Calcium 8.1 L - ABG Interpretation ABG results: PT/INR, D-dimer PT 12.7 Seconds (9.4-12.1) H 08/10/16 14:40 - VTE Documentation of Mechanical Device: Intermittent pneumatic compression device Consult Discharge Plan - Plan Additional Instructions: USP DISCHARGE INSTRUCTIONS Dr. Robles PROCEDURE PERFORMED Reduction and fixation of left hip. Incision care -Daily dressing changes to the right hip with dry gauze and either paper tape or medipore tape. -Avoid soaking wound in water (no hot tubs, bathtubs, swimming pools). -May shower after 2 weeks from surgery date. Carefully wash incision with soap and water. Gently pat it dry. Don't rub the incision, or apply creams or lotions. Sit on a shower stool when showering to keep from falling. Weight bearing status -Weightbearing as tolerated to the bilateral lower extremities. Medications -Pain medication per the discharging medical doctor -Enteric coated aspirin 325 mg by mouth twice per day for 28 days from the date of the surgery. Other -Knee high MARCE hose 23 hours per day -Consult physical and occupational therapy for ambulation. -Up to chair with assistance at least twice per day. -Follow up with your primary care physician to discuss testing for bone mineral density. Follow-up with Dr. Robles at the office 2 weeks from the surgery date for a post operative evaluation. Call the office at [phone] to schedule appointment. Referrals: Sha Beyer DO [Primary Care Provider] -
[2016-08-13] MEDS: *HR* HYDROcodone/Acet 5/325 mg TABLET PO PRN ×2 (04:47→08:53)
--- NOTE | 2016-08-13 06:30 | Orthopedics Progress Note ---
Date of Encounter: 08/13/16 Time of Encounter: 06:30 Subjective Interval history: Patient was seen this morning doing well without complaints. Afebrile vital signs stable. Operative extremity: Neurovascularly intact Dressing clean dry and intact Calves nontender Assessment and plan: Continue with postoperative care stable for discharge Objective Vital signs: Vital Signs Temp Pulse Resp BP Pulse Ox 08/12/16 23:50 97.7 F 85 17 115/66 97 08/12/16 20:51 97.5 F L 70 16 111/70 96 08/12/16 14:01 97.9 F 88 18 123/59 96 08/12/16 11:20 97.9 F 75 15 112/55 97 08/12/16 10:19 98.2 F 81 17 111/65 96 08/12/16 10:04 97.8 F 90 16 107/74 08/12/16 08:38 97.9 F 65 18 148/74 98 Intake and Output 08/12/16 08/12/16 08/13/16 15:59 23:59 07:59 Intake Total 1445 / 1445 300 / 300 400 / 400 Output Total 400 / 400 1275 / 1275 680 / 680 Balance 1045 / 1045 -975 / -975 -280 / -280 Intake: IV Fluids 100 / 100 0.9 % Sodium Chloride 250 100 / 100 ML As .R[facility]TE [facility] Rx#:[id number] Oral 720 / 720 300 / 300 400 / 400 Blood Product 625 / 625 Rbcs Leuko Poor As-1 625 / 625 Unit [id number] Output: Urine 400 / 400 1275 / 1275 680 / 680 Other: Meal Lunch Dinner Percent of Meal Consumed 80% 50% - Labs CBC & BMP: 08/12/16 04:06 08/12/16 04:06 Labs: Abnormal lab results WBC 13.0 K/mcL (4.3-11.1) H 08/12/16 04:06 RBC 2.54 M/mcL (3.82-4.97) L 08/12/16 04:06 Hgb 8.6 g/dL (11.5-15.4) L 08/12/16 04:06 Hct 25.2 % (35.3-44.9) L 08/12/16 04:06 MCH 33.9 pg (28.0-33.3) H 08/12/16 04:06 Plt Count 122 K/mcL (140-400) L 08/12/16 04:06 Neutrophils # 10.5 K/mcL (1.6-8.9) H 08/12/16 04:06 Monocytes # 1.4 K/mcL (0.0-1.3) H 08/12/16 04:06 PT 12.7 Seconds (9.4-12.1) H 08/10/16 14:40 Est GFR (Non-Af Amer) 56 (> 60) L 08/12/16 04:06 Glucose 150 mg/dL (70-99) H 08/12/16 04:06 Calcium 8.1 mg/dL (8.6-10.8) L 08/12/16 04:06 Magnesium 1.4 mg/dL (1.6-2.6) L 08/12/16 04:06 - VTE Documentation of Mechanical Device: Intermittent pneumatic compression device Consult Discharge Plan - Plan Additional Instructions: CORRECTION DISCHARGE INSTRUCTIONS Dr. Robles PROCEDURE PERFORMED Reduction and fixation of left hip. Incision care -Daily dressing changes to the right hip with dry gauze and either paper tape or medipore tape. -Avoid soaking wound in water (no hot tubs, bathtubs, swimming pools). -May shower after 2 weeks from surgery date. Carefully wash incision with soap and water. Gently pat it dry. Don't rub the incision, or apply creams or lotions. Sit on a shower stool when showering to keep from falling. Weight bearing status -Weightbearing as tolerated to the bilateral lower extremities. Medications -Pain medication per the discharging medical doctor -Enteric coated aspirin 325 mg by mouth twice per day for 28 days from the date of the surgery. Other -Knee high MARCE hose 23 hours per day -Consult physical and occupational therapy for ambulation. -Up to chair with assistance at least twice per day. -Follow up with your primary care physician to discuss testing for bone mineral density. Follow-up with Dr. Robles at the office 2 weeks from the surgery date for a post operative evaluation. Call the office at [phone] to schedule appointment. Referrals: Sha Beyer DO [Primary Care Provider] -
[2016-08-13 06:48] LABS: Basophils % 0.1 %; Eosinophils % 0.3 %; Hematocrit 25.7 % (35.3-44.9); Hemoglobin 8.9 g/dL (11.5-15.4); Immature Granulocytes % 0.6 % (0-4); Lymphocytes % 8.3 %; Mean Corpuscular HGB Conc 34.6 g/dL (31.6-35.5); Mean Corpuscular Hemoglobin 32.6 pg (28.0-33.3); Mean Corpuscular Volume 94.1 fL (83.0-100.0); Monocytes # 1.8 K/mcL (0.0-1.3); Monocytes % 14.2 %; Neutrophils # 9.5 K/mcL (1.6-8.9); Platelet Count 123 K/mcL (140-400); Red Blood Count 2.73 M/mcL (3.82-4.97); Red Cell Distribution Width 14.6 % (11.5-14.5); Segmented Neutrophils % 76.5 %
[2016-08-13 07:00] LABS: BUN/Creatinine Ratio 25 (6-26); Blood Urea Nitrogen 20 mg/dL (7-20); Calcium 8.1 mg/dL (8.6-10.8); Carbon Dioxide 27 mEq/L (19-29); Chloride 101 mEq/L (98-109); Glucose 116 mg/dL (70-99); Osmolality,Calculated 286 (280-300); Sodium 136 mEq/L (136-145); eGFR For African Americans > 60 (> 60); eGFR For Non-African Americans > 60 (> 60)
[2016-08-13] MEDS: Omega-3/Dha/Epa/Fish Oil [Fish Oil 1,000 Mg Softgel] PO SCH (08:53)
[2016-08-13] MEDS: Metoprolol XL (24 HR) Succ 50 MG TAB.ER.24H PO SCH (08:53)
[2016-08-13] MEDS: Aspirin Enteric Coated 325 MG Tablet PO SCH (08:53)
[2016-08-13] MEDS ORDERED: Sennosides/Docusate Sodium TABLET PO SCH (10:00)
--- NOTE | 2016-08-13 10:02 | Discharge Summary ---
Date of Encounter: 08/13/16 Time of Encounter: 09:59 - Discharge Diagnosis (1) Hypomagnesemia Priority: Secondary Status: Acute (2) Recurrent falls Priority: Secondary Status: Acute (3) Disequilibrium Priority: Secondary Status: Acute (4) Femur fracture, left Priority: Primary Status: Acute Qualifiers: Encounter type: initial encounter Femur location: intertrochanteric Fracture type: closed Fracture alignment: displaced Qualified Code(s): S72.142A - Displaced intertrochanteric fracture of left femur, initial encounter for closed fracture (5) Hypertension Priority: Secondary Status: Acute Qualifiers: Qualified Code(s): I10 - Essential (primary) hypertension (6) Postoperative anemia due to acute blood loss Priority: Secondary Status: Acute (7) Hypokalemia Priority: Secondary Status: Acute - Discharge Medications Prescriptions: HYDROcodone/Acet 5/325 mg [[place] 5-325 mg] 1 tab PO Q4HR PRN #30 tablet PRN Reason: Moderate Pain Home Medications: Acetaminophen [Tylenol] 500 mg PO Q6H PRN 08/10/16 [History] Calcium Carbonate [Calcium] 600 mg PO BID 08/10/16 [History] Metoprolol Succinate 100 mg PO DAILY 08/10/16 [History] Multivit-Min/FA/Lycopen/Lutein [Centrum Silver Tablet] 1 each PO DAILY 08/10/16 [History] [place]-3/Dha/Epa/Fish Oil [Fish Oil 1,000 mg Softgel] 1,000 mg PO DAILY 08/10/16 [History] Oxybutynin [Ditropan] 5 mg PO DAILY 08/10/16 [History] Potassium Chloride [K-Tab ER] 20 meq PO DAILY 08/10/16 [History] Triamterene/HCTZ 37.5/25mg [Dyazide] 1 each PO DAILY 08/10/16 [History] Aspirin Enteric Coated [Aspirin EC] 325 mg PO BID #60 tablet.dr 08/13/16 [Rx] HYDROcodone/Acet 5/325 mg [[place] 5-325 mg] 1 tab PO Q4HR PRN #30 tablet [Rx] Sennosides/Docusate Sodium [Senna Plus] 2 each PO DAILY PRN tablet 08/13/16 [Rx ] Allergies/Adverse Reactions: Allergies No Known Allergies Allergy (Verified 09/28/15 16:34) Date of admission: 08/11/16 11:05 Primary care physician: Lauri Acuña Consults: 08/11/16 15:08 Consult to Occupational Therapy [CONS] Routine Comment: Evaluate, develop and implement POC Reason for Consult: post hip surgery Consult to Orthopedic Navigator [CONS] [CONS] Routine Consult to Physical Therapy [CONS] Routine Comment: Evaluate, develop and implement POC Reason for Consult: post hip surgery Consult to Membership Sales Manager [CONS] Routine Reason for SW Consult: post -op hip fracture RT Post Op Consult [CONS] Routine - Patient Status Disposition: Transfer SNF Condition: Good Functional capacity at discharge: uses cane/walker Overall status at discharge: patient is not back to baseline - Discharge Instructions Follow Up With: Sha Beyer DO [Primary Care Provider] - Carlos Robles MD [Partnered Physician] - Additional Instructions: LONG-TERM DISCHARGE INSTRUCTIONS Dr. Robles PROCEDURE PERFORMED Reduction and fixation of left hip. Incision care -Daily dressing changes to the right hip with dry gauze and either paper tape or medipore tape. -Avoid soaking wound in water (no hot tubs, bathtubs, swimming pools). -May shower after 2 weeks from surgery date. Carefully wash incision with soap and water. Gently pat it dry. Don't rub the incision, or apply creams or lotions. Sit on a shower stool when showering to keep from falling. Weight bearing status -Weightbearing as tolerated to the bilateral lower extremities. Medications -Pain medication per the discharging medical doctor -Enteric coated aspirin 325 mg by mouth twice per day for 28 days from the date of the surgery. Other -Knee high MARCE hose 23 hours per day -Consult physical and occupational therapy for ambulation. -Up to chair with assistance at least twice per day. -Follow up with your primary care physician to discuss testing for bone mineral density. Follow-up with Dr. Robles at the office 2 weeks from the surgery date for a post operative evaluation. Call the office at [phone] to schedule appointment. - Diet and Activity Activity: as per physical therapy, increase activity as tolerated Diet: advance to your usual diet Hospital course: Ms. Reagan is a 85 year old female with past medical history significant for hypertension, chronic kidney disease stage III who was brought to the hospital after she had suffered a fall at home. She lost her balance while walking onto her porch and fell striking her left hip. She started experiencing severe left hip pain and she was unable to bear weight and ambulate. Imaging done in the emergency department showed an acute left intertrochanteric femur fracture. She was admitted to the medical service and orthopedic service was consulted. She underwent an open reduction and internal fixation with intramedullary nailing of the left hip on 08/11/2016. She tolerated the procedure well. She had mild blood loss anemia secondary to surgery and she received 1 unit of blood transfusion. She developed hypokalemia which is being treated with potassium, chloride and mild constipation for which she is receiving senna and Colace. She had a favorable postoperative course and will be discharged to a correction facility for physical therapy today. She expresses understanding and agreement with the plan of care. - Time Spent with Patient Total time spent providing and/or coordinating discharge services: Greater than 30 minutes (I have spent 40 minutes coordinating this discharge.) - Constitutional Vitals: Temp Pulse Resp BP Pulse Ox 98 F 83 16 118/64 97 08/13/16 06:37 08/13/16 06:37 08/13/16 06:37 08/13/16 06:37 08/13/16 06:37 - Cardiovascular Cardiovascular exam: Present: RRR, +S1, +S2. Absent: diastolic murmur, gallop, rubs, systolic murmur - GI/Abdominal GI/Abdominal exam: Present: normal bowel sounds, soft, no peritoneal signs. Absent: distended, tenderness - Extremities Exam Extremities exam: Present: warm, radial pulses palpable and symetrical. Absent : calf tenderness (Left hip surgical dressing in place clean dry and and intact) , cyanotic, pedal edema - Skin Skin exam: Present: dry, intact - VTE Documentation of Mechanical Device: Intermittent pneumatic compression device
--- NOTE | 2016-08-13 10:10 | Physician Discharge Referral ---
ExtendedCare Referral Info Provider in Charge after Transfer: PCP Institutional Level of Care: Skilled - Diagnosis (1) Hypomagnesemia Status: Acute (2) Recurrent falls Status: Acute (3) Disequilibrium Status: Acute (4) Femur fracture, left Status: Acute (5) Hypertension Status: Acute (6) Postoperative anemia due to acute blood loss Status: Acute (7) Hypokalemia Status: Acute - Transfer Medications Prescriptions: HYDROcodone/Acet 5/325 mg [[place] 5-325 mg] 1 tab PO Q4HR PRN #30 tablet PRN Reason: Moderate Pain Home Medications: Acetaminophen [Tylenol] 500 mg PO Q6H PRN 08/10/16 [History] Calcium Carbonate [Calcium] 600 mg PO BID 08/10/16 [History] Metoprolol Succinate 100 mg PO DAILY 08/10/16 [History] Multivit-Min/FA/Lycopen/Lutein [Centrum Silver Tablet] 1 each PO DAILY 08/10/16 [History] [place]-3/Dha/Epa/Fish Oil [Fish Oil 1,000 mg Softgel] 1,000 mg PO DAILY 08/10/16 [History] Oxybutynin [Ditropan] 5 mg PO DAILY 08/10/16 [History] Potassium Chloride [K-Tab ER] 20 meq PO DAILY 08/10/16 [History] Triamterene/HCTZ 37.5/25mg [Dyazide] 1 each PO DAILY 08/10/16 [History] Aspirin Enteric Coated [Aspirin EC] 325 mg PO BID #60 tablet. 08/13/16 [Rx] HYDROcodone/Acet 5/325 mg [[place] 5-325 mg] 1 tab PO Q4HR PRN #30 tablet [Rx] Sennosides/Docusate Sodium [Senna Plus] 2 each PO DAILY PRN tablet 08/13/16 [Rx ] Allergies/Adverse Reactions: Allergies No Known Allergies Allergy (Verified 09/28/15 16:34) - Respiratory Orders Other (Incentive spirometry every 2 hours while awake) Smoking Cessation: Smoking cessation has been advised. For more information, call the [employer] Tobacco Quit Line at 3-904-PHCD-NOW. - Advance Directives Living Will: Yes Power of Chief Digital Officer: Yes Code Status: Full Code - Mobility Orders Ambulate - Rehabiliation Orders Rehab Potential: Good Rehab Orders: Evaluation for Physical Therapy, Evaluation for Occupational Therapy - Treatments Skin tear care topically daily PRN per policy - Diet Orders Cardiac (High potassium) CERTIFICATION: I certify that the transfer of the above named patient to an Extended Care Facility is necessary for the continuing treatment of the diagnosis listed. The above information is true and accurate reflection of patient's current condition. Confidential - Redisclosure prohibited without a patient's written consent.
[2016-08-13 11:12] VITALS: BP 123/67
== END 2016-08-13 13:43 | DRG 481 ==
LOC: 3NENU 13:25 → EMEROO 13:25 → 3NENU 17:18 → SUATTDRO 08-11 11:05
PROVIDERS: ADMIT Hospitalist; ATTEND Internal Medicine